=== PATIENT | female | born 1965 | race Caucasian/White ===

== ENCOUNTER 2017-08-27 22:49 | Emergency (ER) | payer OTHER ==
[2017-08-27 23:02] VITALS: BP 147/76; PULSE 92; TEMP 97.8; BMI 28.3
--- NOTE | 2017-08-28 00:49 | PDOC ---
History of Present Illness <Sharon Mckenzie - Last Filed: 08/28/17 01:34> - General History Source: Patient Exam Limitations: No Limitations - History of Present Illness Initial Comments: 08/28/17 00:57 The patient is a 52 year old female with a significant PMH of diabetes and arthritis who presents to the emergency department with hot flashes, face turning red, diaphoresis, and occasional palpitations that began at approximately 8PM. The patient states the hot flashes began approximately 2 hours after eating dinner and notes that she was relaxing during the onset of these hot flashes. The patient reports she has not had similar symptoms in the past. The patient reports her LMP was on 08/14/17. The patient denies chest pain, shortness of breath, headache and dizziness. Denies fever, chills, nausea, vomit, diarrhea and constipation. Denies dysuria, frequency, urgency and hematuria. Allergies: NKA Past surgical history: None reported Social history: No reported alcohol, drug, or cigarette use. PCP: Dr. Watson <Yany Joseph - Last Filed: 08/28/17 03:13> - General Chief Complaint: Palpitations Stated Complaint: BLOOD PRESSURE PROBLEM Time Seen by Provider: 08/28/17 00:34 Past History - Past Medical History COPD: No Diabetes: Yes Other medical history: Arthritis - Suicide/Smoking/Psychosocial Hx Smoking History: Never smoked Have you smoked in the past 12 months: No Information on smoking cessation initiated: No Hx Alcohol Use: No Drug/Substance Use Hx: No Substance Use Type: None <Sharon Mckenzie - Last Filed: 08/28/17 01:34> <Yany Joseph - Last Filed: 08/28/17 03:13> - Past Medical History Allergies/Adverse Reactions: Allergies Allergy/AdvReac Type Severity Reaction Status Date / Time No Known Allergies Allergy Verified 08/27/17 22:59 Home Medications: Ambulatory Orders Atorvastatin Ca [Lipitor] 20 mg PO HS 08/28/17 Glipizide 5 mg PO DAILY 08/28/17 Lisinopril 20 mg PO DAILY 08/28/17 Metformin HCl [Glucophage] 1,000 mg PO BID 08/28/17 Review of Systems - Review of Systems Able to Perform ROS?: Yes Comments:: 08/28/17 01:02 GENERAL/CONSTITUTIONAL: (+) Hot flashes. (+) Diaphoresis. No fever or chills. No weakness. HEAD, EYES, EARS, NOSE AND THROAT: No change in vision. No ear pain or discharge. No sore throat. CARDIOVASCULAR: (+) Palpitations. No chest pain or shortness of breath. RESPIRATORY: No cough, wheezing, or hemoptysis. GASTROINTESTINAL: No nausea, vomiting, diarrhea or constipation. GENITOURINARY: No dysuria, frequency, or change in urination. MUSCULOSKELETAL: No joint or muscle swelling or pain. No neck or back pain. SKIN: No rash NEUROLOGIC: No headache, vertigo, loss of consciousness, or change in strength/ sensation. ENDOCRINE: No increased thirst. No abnormal weight change. HEMATOLOGIC/LYMPHATIC: No anemia, easy bleeding, or history of blood clots. ALLERGIC/IMMUNOLOGIC: No hives or skin allergy. <Yany Joseph - Last Filed: 08/28/17 03:13> *Physical Exam - Vital Signs Last Vital Signs Temp Pulse Resp BP Pulse Ox 97.8 F 92 H 18 147/76 100 08/27/17 22:59 08/27/17 22:59 08/27/17 22:59 08/27/17 22:59 08/27/17 22:59 <Sharon Mckenzie - Last Filed: 08/28/17 01:34> - Vital Signs Last Vital Signs Temp Pulse Resp BP Pulse Ox 97.8 F 92 H 18 147/76 100 08/27/17 22:59 08/27/17 22:59 08/27/17 22:59 08/27/17 22:59 08/27/17 22:59 - Physical Exam Comments: 08/28/17 01:11 GENERAL: Awake, alert, and fully oriented, in no acute distress HEAD: No signs of trauma EYES: PERRLA, EOMI, sclera anicteric, conjunctiva clear ENT: Auricles normal inspection, hearing grossly normal, nares patent, oropharynx clear without exudates. Moist mucosa NECK: Normal ROM, supple, no lymphadenopathy, JVD, or masses LUNGS: Breath sounds equal, clear to auscultation bilaterally. No wheezes, and no crackles HEART: Regular rate and rhythm, normal S1 and S2, no murmurs, rubs or gallops ABDOMEN: Soft, nontender, normoactive bowel sounds. No guarding, no rebound. No masses EXTREMITIES: Normal range of motion, no edema. No clubbing or cyanosis. No cords, erythema, or tenderness NEUROLOGICAL: Cranial nerves II through XII grossly intact. Normal speech, normal gait SKIN: Warm, Dry, normal turgor, no rashes or lesions noted. <Yany Joseph - Last Filed: 08/28/17 03:13> Heart Score/ECG Review #1 08/28/17 01:31 EKG performed at [1:10] demonstrates rate of [91], Normal sinus rhythm. Possible left atrial enlargement. <Yany Joseph - Last Filed: 08/28/17 03:13> *DC/Admit/Observation/Transfer <Sharon Mckenzie - Last Filed: 08/28/17 01:34> - Attestations Scribe Attestion: 08/28/17 01:12 Documentation prepared by Yany Joseph, acting as medical center representative for Sharon Mckenzie MD. <Yany Joseph - Last Filed: 08/28/17 03:13> Diagnosis at time of Disposition: Palpitations, Hot flashes due to menopause - Discharge Dispostion Disposition: HOME Condition at time of disposition: Stable - Referrals Referrals: Deangelo Watson [Primary Care Provider] - - Patient Instructions - Post Discharge Activity
--- NOTE | 2017-08-28 23:22 | EKG ---
Test Reason : Blood Pressure : / mmHG Vent. Rate : 091 BPM Atrial Rate : 091 BPM P-R Int : 158 ms QRS Dur : 080 ms QT Int : 368 ms P-R-T Axes : 063 026 025 degrees QTc Int : 452 ms NORMAL SINUS RHYTHM POSSIBLE LEFT ATRIAL ENLARGEMENT BORDERLINE ECG WHEN COMPARED WITH ECG OF 01-JUL-2003 00:32, VENT. RATE HAS INCREASED BY 32 BPM Confirmed by ROSALINE HA MD ([id number]) on 08/28/2017 11:22:00 PM Referred By: Confirmed By:ROSALINE HA MD
== END 2017-08-28 01:38 | disposition home or self-care (01) ==
LOC: JER 22:49
DX: R00.2 Palpitations (principal); N95.1 Menopausal and female climacteric states; E11.9 Type 2 diabetes mellitus without complications; Z79.84 Long term (current) use of oral hypoglycemic drugs; M12.9 Arthropathy, unspecified
CPT/HCPCS: 93005; 93010; 99283-25